=== PATIENT | female | born 1950 | race Caucasian/White ===

== ENCOUNTER 2022-01-07 06:21 | Day surgery (SDC) | payer MEDICARE ==
[2022-01-03 11:28] VITALS: BMI 23.2
[~2022-01-07 06:21] MED LIST: EPINEPHrine 0.3 MG in Ophthalmic Irrigation Solution 500 ML IRR SCH
[2022-01-07] MEDS ORDERED: Midazolam HCl 2 mg/2 ml Vial ONE (06:40)
[2022-01-07] MEDS ORDERED: fentaNYL Citrate/PF 100 MCG/2 ML SYRINGE ONE (06:40)
[2022-01-07] MEDS ORDERED: Phenylephrine 2.5% Ophth Soln 5 ML BOT ONE (07:27)
[2022-01-07] MEDS ORDERED: Cyclopentolate 1% Opth Drop 2 ML BOT ONE (07:27)
[2022-01-07] MEDS ORDERED: Bupivacaine 0.75% 10 ML VIAL ONE (09:05)
[2022-01-07] MEDS ORDERED: Triamcinolone 40 MG/ML VIAL ONE (09:05)
[2022-01-07] MEDS ORDERED: PROPOFOL 200 MG/20 ML VIAL ONE (09:05)
[2022-01-07] MEDS ORDERED: Lidocaine 1% PF 5 ML VIAL ONE (09:05)
[2022-01-07] MEDS ORDERED: Maxitrol 0.1% Opth Oint 3.5 GM TUBE ONE (09:05)
[2022-01-07] MEDS ORDERED: CEFAZOLIN 1 GM VIAL ONE (09:05)
[2022-01-07] MEDS ORDERED: Indocyanine Green 25 MG/10 ML VIAL ONE (09:05)
[2022-01-07] MEDS ORDERED: Lidocaine 4% PF 5 ML AMP ONE (09:05)
== END 2022-01-07 10:48 | disposition home or self-care (01) ==
LOC: SDC 06:21
PROVIDERS: ATTEND Ophthalmology Retina Specialist
PROC: 08T53ZZ Resection of Left Vitreous, Percutaneous Approach (ICD-10-PCS; principal; 2022-01-07)
PROC: 08NF3ZZ Release Left Retina, Percutaneous Approach (ICD-10-PCS; 2022-01-07)
DX: H35.372 Puckering of macula, left eye (principal); M19.90 Unspecified osteoarthritis, unspecified site; Z87.891 Personal history of nicotine dependence; Z79.82 Long term (current) use of aspirin
CPT/HCPCS: J0171; J0690; J2250; J2704; J3301; J3490